=== PATIENT | male | born 1980 | race Caucasian/White ===

== ENCOUNTER 2017-03-02 11:38 | Emergency (ER) | payer OTHER ==
[~2017-03-02 11:38] MED LIST: Z.0.NO CURRENT MEDS
[2017-03-02 11:43] VITALS: BP 184/107; PULSE 88; RESP 18; TEMP 98.2; O2SAT 100
--- NOTE | 2017-03-02 11:56 | PD ---
HPI Chief Complaint: Injury Time Seen by Provider: 11:45 Travel History International Travel<30 days: No Contact w/Intl Traveler<30days: No Traveled to known affect area: No History of Present Illness HPI This patient was lifting weights and as he lifted the weights above his head the right shoulder popped out of joint. He complains of right shoulder dislocation. No direct trauma to it. He can't move his arm well. He has severe pain with movement attempts. Discomfort is alleviated with rest. Exacerbated with movement. No history of prior dislocation. He does have remote history of labrum tear requiring conservative care. Duration 30 minutes. Symptoms severity is severe. PFSH Past Medical History Medical History: Denies Significant Hx Cardiac Catheterization: Yes (ABLATION FOR WPW) Influenza Vaccination: No Social History Alcohol Use: Yes (COUPLE TIMES PER WEEK) Tobacco Use: No Substance Use: No Allergies-Medications (Allergen,Severity, Reaction): Coded Allergies: No Known Allergies (Unverified , 03/02/17) Reported Meds & Prescriptions Reported Meds & Active Scripts Active Percocet (Oxycodone-Acetaminophen) 5-325 mg Tab 1 Tab PO Q6H PRN Review of Systems General / Constitutional: No: Fever Eyes: No: Visual changes HENT: No: Headaches Cardiovascular: No: Chest Pain or Discomfort Respiratory: No: Shortness of Breath Gastrointestinal: No: Abdominal Pain Genitourinary: No: Dysuria Musculoskeletal: Positive: Arthralgias, Limited ROM, Pain Skin: No Rash Neurologic: No: Weakness Psychiatric: No: Depression Endocrine: No: Polydipsia Hematologic/Lymphatic: No: Easy Bruising Physical Exam Narrative GENERAL: Well-nourished, well-developed patient with right shoulder pain . SKIN: Focused skin assessment reveals no rash and nodules. Skin is Warm and dry. HEAD: Atraumatic. Normocephalic. EYES: Pupils equal and round. No scleral icterus. No injection or drainage. ENT: No nasal bleeding or discharge. Mucous membranes pink and moist. NECK: Trachea midline. No JVD. CARDIOVASCULAR: Regular rate and rhythm. No murmur appreciated. RESPIRATORY: No accessory muscle use. Clear to auscultation. Breath sounds equal bilaterally. GASTROINTESTINAL: Abdomen soft, non-tender, nondistended. Hepatic and splenic margins not palpable. MUSCULOSKELETAL: Right shoulder seems to be dislocated. Humeral head is not in the usual position. No specific bony tenderness. No open wound or bruising. No clubbing. No cyanosis. No edema. Right arm is neurovascularly intact. NEUROLOGICAL: Awake and alert. No obvious cranial nerve deficits. Motor grossly within normal limits. Normal speech. PSYCHIATRIC: Appropriate mood and affect; insight and judgment normal. Data Data Last Documented VS Vital Signs Date Time Temp Pulse Resp B/P (MAP) Pulse Ox O2 Delivery O2 Flow Rate FiO2 03/02/17 12:52 100 03/02/17 12:51 2.00 03/02/17 12:18 18 03/02/17 12:16 Nasal Cannula 03/02/17 12:16 80 154/98 (116) 03/02/17 11:43 98.2 Orders Orders Ondansetron Inj (Zofran Inj) (03/02/17 12:00) Morphine Inj (Morphine Inj) (03/02/17 12:00) Iv Access Insert/Monitor (03/02/17 11:50) Complete Blood Count With Diff (03/02/17 11:50) Basic Metabolic Panel (Bmp) (03/02/17 11:50) Awning Finisher / Telemetry ULICES.Q8H (03/02/17 11:50) Oximetry (03/02/17 11:50) Oxygen Administration (03/02/17 11:50) Propofol 200 Mg/20 Ml Inj (Diprivan 200 (03/02/17 12:00) Shoulder, Limited(2vws) (03/02/17 ) Shoulder, Limited(2vws) (03/02/17 ) Labs Laboratory Tests Test 03/02/17 11:45 White Blood Count 6.9 TH/MM3 Red Blood Count 4.73 MIL/MM3 Hemoglobin 13.6 GM/DL Hematocrit 41.2 % Mean Corpuscular Volume 87.0 FL Mean Corpuscular Hemoglobin 28.7 PG Mean Corpuscular Hemoglobin Concent 33.0 % Red Cell Distribution Width 12.0 % Platelet Count 220 TH/MM3 Mean Platelet Volume 8.4 FL Neutrophils (%) (Auto) 78.5 % Lymphocytes (%) (Auto) 15.4 % Monocytes (%) (Auto) 4.9 % Eosinophils (%) (Auto) 0.3 % Basophils (%) (Auto) 0.9 % Neutrophils # (Auto) 5.4 TH/MM3 Lymphocytes # (Auto) 1.1 TH/MM3 Monocytes # (Auto) 0.3 TH/MM3 Eosinophils # (Auto) 0.0 TH/MM3 Basophils # (Auto) 0.1 TH/MM3 CBC Comment DIFF FINAL Differential Comment Blood Urea Nitrogen 19 MG/DL Creatinine 1.20 MG/DL Random Glucose 91 MG/DL Calcium Level 8.5 MG/DL Sodium Level 141 MEQ/L Potassium Level 4.2 MEQ/L Chloride Level 109 MEQ/L Carbon Dioxide Level 22.2 MEQ/L Anion Gap 10 MEQ/L Estimat Glomerular Filtration Rate 69 ML/MIN MDM Medical Decision Making Medical Screen Exam Complete: Yes Emergency Medical Condition: Yes Medical Record Reviewed: Yes Differential Diagnosis Shoulder dislocation, contusion, fracture Narrative Course I have reviewed the patient's electronic medical record. IV placed I gave him injection of morphine and Zofran for symptom relief I reviewed his right shoulder x-rays which show a dislocation but no fracture Procedure note: I reviewed risk benefits alternatives with the patient. He agrees and signs informed consent for conscious sedation and reduction of dislocation of shoulder. I placed him on telemetry and oximetry and oxygen. I gave him a total of 80 mg IV Diprivan This achieved a good level of sedation I placed a sheet around his torso and used countertraction. I pulled on the right arm and maneuvered it into position I reviewed his postreduction x-ray which confirms reduction I gave him extra 40 minutes of monitoring on telemetry and oximetry He is wide awake and feeling better I wrote him some Percocet and placed him in a sling and swath He will follow with orthopedist and ice Diagnosis Primary Impression: Dislocation of shoulder, right, closed Qualified Codes: S43.004A - Unspecified dislocation of right shoulder joint, initial encounter Additional Instructions: The patient was warned about potential sedation for the medications they will receive on prescription. Ice the right shoulder Wear sling Follow-up with orthopedist Med/Other Pt SpecificInfo: Prescription(s) given Scripts Oxycodone-Acetaminophen (Percocet) 5-325 mg Tab 1 TAB PO Q6H Y for PAIN, #25 TAB 0 Refills Prov: Valdo Worley MD 03/02/17 Disposition: 01 DISCHARGE HOME Condition: Stable Valdo Worley MD Mar 02, 2017 11:56
[2017-03-02] MEDS ORDERED: PROPOFOL 200 MG/20 ML AMP IV ONE (12:00)
[2017-03-02] MEDS ORDERED: ONDANSETRON HCL 4 MG/2 ML VIAL IVP ONE (12:00)
[2017-03-02] MEDS ORDERED: MORPHINE SULFATE 4 MG/ML INJ IV PUSH ONE (12:00)
[2017-03-02 12:06] LABS: AUTOMATED NEUTROPHIL # 5.4 TH/MM3 (1.8-7.7); BASOPHIL # 0.1 TH/MM3 (0-0.2); BASOPHIL % 0.9 % (0.0-2.0); EOSINOPHIL % 0.3 % (0.0-4.0); HEMATOCRIT 41.2 % (39.0-51.0); HEMO FLAGS DIFF FINAL; LYMPH % 15.4 % (9.0-44.0); LYMPHOCYTE # 1.1 TH/MM3 (1.0-4.8); MEAN CORPUSCULAR HEMOGLOBIN 28.7 PG (27.0-34.0); MONO % 4.9 % (0.0-8.0); NEUT % 78.5 % (16.0-70.0); PLATELET COUNT 220 TH/MM3 (150-450); RED BLOOD COUNT 4.73 MIL/MM3 (4.50-5.90); WHITE BLOOD COUNT 6.9 TH/MM3 (4.0-11.0)
[2017-03-02 12:12] LABS: POTASSIUM 4.2 MEQ/L (3.5-5.1)
[2017-03-02 12:15] LABS: BICARBONATE 22.2 MEQ/L (21.0-32.0)
[2017-03-02 12:16] VITALS: BP 154/98; PULSE 80; RESP 18; O2SAT 98
[2017-03-02 12:51] VITALS: O2SAT 100
[2017-03-02 12:52] VITALS: O2SAT 100
--- NOTE | 2017-03-02 12:55 | RADRPT ---
EXAM DATE/TIME: 03/02/2017 12:40 [facility] COMPARISON: SHOULDER RIGHT LTD (2VWS), March 02, 2017, 12:20. INDICATIONS : Post reduction right shoulder MEDICAL HISTORY : None. SURGICAL HISTORY : None. ENCOUNTER: Subsequent ACUITY: 1 day PAIN SCORE: 8/10 LOCATION: Right shoulder FINDINGS: 2 views right shoulder. Bone alignment within normal limits. No evidence of fracture. Mild hypertrop hic change of the acromioclavicular joint. CONCLUSION: Alignment within normal limits. Tomasz Mora MD on March 02, 2017 at 12:53 Board Certified Radiologist. This report was verified electronically.
--- NOTE | 2017-03-02 13:02 | RADRPT ---
EXAM DATE/TIME: 03/02/2017 12:20 [facility] COMPARISON: No previous studies available for comparison. INDICATIONS : Right shoulder pain. MEDICAL HISTORY : None. SURGICAL HISTORY : None. ENCOUNTER: Initial ACUITY: 1 day PAIN SCORE: 10/10 LOCATION: Right shoulder FINDINGS: 2 views right shoulder. Anterior dislocation of the humeral head. No gross evidence of fracture. CONCLUSION: Anterior humeral head dislocation. Tomasz Mora MD on March 02, 2017 at 12:59 Board Certified Radiologist. This report was verified electronically.
[2017-03-02] MEDS ORDERED: PERC5TAB12 PO (13:10)
[2017-03-02 13:13] VITALS: BP 150/79; PULSE 76; RESP 18; O2SAT 99
== END 2017-03-02 13:24 | disposition home or self-care (01) ==
LOC: PHED 11:38
DX: S43.004A Unspecified dislocation of right shoulder joint, initial encounter (principal); X58.XXXA Exposure to other specified factors, initial encounter; Y93.B3 Activity, free weights
CPT/HCPCS: 23650; 73030; 80048; 85025; 96374; 96375; 99152; 99285; J2270; J2405; 29240